=== PATIENT | female | born 1945 | race Caucasian/White ===

== ENCOUNTER 2017-10-05 13:16 | Day surgery (SDC) | payer OTHER ==
[~2017-10-05] VITALS: Ht 157.5 cm; Wt 73.0 kg
[~2017-10-05 13:16] MED LIST: MIRALAX17 GM PO; NORVASC5 MG PO; PREPARATION H C51 G1 PR; PREPARATION H1 EAC4 PR; PROTONIX40 MG PO; TENORMIN25 MG PO; VITAMIN D-32000 UNI2 PO; WOMEN MULTIVIT1 EACH PO; ZITHROMAX250 MG PO
[2017-10-05 13:54] VITALS: BP 178/72
[2017-10-05 17:51] VITALS: BP 143/62
[2017-10-05] MEDS ORDERED: NORCO 5/3251 TABLET PO (18:10)
[2017-10-05 18:51] VITALS: BP 187/77
[2017-10-05 20:09] VITALS: BP 143/60
== END 2017-10-05 20:16 | disposition home or self-care (01) ==
LOC: SDC 13:16
DX: K64.8 Other hemorrhoids (principal); I10 Essential (primary) hypertension; K44.9 Diaphragmatic hernia without obstruction or gangrene; E66.9 Obesity, unspecified; Z68.32 Body mass index [BMI] 32.0-32.9, adult; K21.9 Gastro-esophageal reflux disease without esophagitis
CPT/HCPCS: J0690; J1170; J1885; J2405; J2765; J3010; S0020